=== PATIENT | female | born 1975 | race Caucasian/White ===

== ENCOUNTER 2016-09-13 21:39 | Emergency (ER) ==
[2016-09-13 21:58] VITALS: BP 134/83; TEMP 98.8; BMI 31.6
--- NOTE | 2016-09-13 22:18 | ED.PDOC ---
General ED Provider: Dr. RYAN VARGAS-ER Chief Complaint: Tooth Problem Stated Complaint: iv got a bad tooth Time Seen by Physician: 22:15 Mode of Arrival: Walk-In Information Source: Patient Exam Limitations: No limitations Primary Care Provider: TIO PETERSON Nursing and Triage Documentation Reviewed and Agree: Yes EENT Complaint Exam - Dental/Oral Complaint/Exam Mechanism of Injury: No known trauma Onset/Duration: several hours Symptoms Are: Still present Timing: Constant Initial Severity: Mild Current Severity: Mild Location: several days Character: Reports: Dull, Aching, Throbbing Aggravating: Reports: None Alleviating: Reports: None Associated Signs and Symptoms: Reports: Swelling. Denies: Discharge, Fever, Foul taste in mouth Related History: Reports: Similar episode Cardiac Risk Factors: Reports: None Dental/Oral Surgical History: Reports: None Tooth Findings: Present: Percussion tenderness, Gross decay, Gross caries Cervical Lymphadenopathy Present: No Facial Swelling Present: Yes Bleeding Present: No Oropharynx Findings: Absent: Clots, Active bleeding Septal Hematoma: No Foreign Body Present: No Dysphagia Present: No Drooling Present: No Asymmetrical Tonsillar Swelling Present: No Uvula Midline: No Giulia-tonsillar Fluctuence: No Trismus Present: No Palatal Petechiae Present: No Scarlatinaform Rash Present: No Differential Diagnoses: Dental Abcess, Dental Caries, Gingivitis Review of Systems - Review Of Systems Constitutional: Reports: No symptoms Eyes: Reports: No symptoms Ears, Nose, Mouth, Throat: Reports: Mouth pain Respiratory: Reports: No symptoms Cardiac: Reports: No symptoms GI: Reports: No symptoms : Reports: No symptoms Musculoskeletal: Reports: No symptoms Skin: Reports: No symptoms Neurological: Reports: No symptoms Endocrine: Reports: No symptoms Hematologic/Lymphatic: Reports: No symptoms All Other Systems: Reviewed and Negative Past Medical History - Past Medical History Previously Healthy: Yes Endocrine: Reports: None Cardiovascular: Reports: Hypertension Respiratory: Reports: None Hematological: Reports: None Gastrointestinal: Reports: None Genitourinary: Reports: None Neuro/Psych: Reports: None Musculoskeletal: Reports: None Cancer: Reports: None Last Menstrual Period: 09/07/16 Other Pertinent Past Medical History: Sinus problem - Surgical History General Surgical History: Reports: None - Family History Family History: Reports: Unknown - Social History Smoking Status: Current every day smoker Hx Substance Use: No Alcohol Screening: None Lives: With family - Immunizations Tetanus Shot up to Date: Yes Physical Exam - Physical Exam Appearance: Well-appearing, No pain distress, Well-nourished Eyes: RAJ, EOMI, Conjunctiva clear ENT: Ears normal, Nose normal, Oropharynx normal (noted tenderness over rigth lower incisor) Neck: Supple Respiratory: Airway patent, Breath sounds clear, Breath sounds equal, Respirations nonlabored Cardiovascular: RRR, Pulses normal, No rub, No murmur GI/: Soft, Nontender, No masses, Bowel sounds normal, No Organomegaly Musculoskeletal: Normal strength, ROM intact, No edema, No calf tenderness Skin: Warm, Dry, Normal color Neurological: Sensation intact, Motor intact, Reflexes intact, Cranial nerves intact, Alert, Oriented Psychiatric: Affect appropriate, Mood appropriate Critical Care Note - Critical Care Note Total Time (mins): 0 Course - Course Vital Signs: Temp Pulse Resp BP Pulse Ox 09/13/16 21:43 98.8 F 71 20 134/83 97 Departure - Departure Time of Disposition: 22:18 Disposition: HOME SELF-CARE Discharge Problem: Dental abscess Instructions: Dental Abscess (ED) Condition: Good Pt referred to PMD for follow-up: Yes Additional Instructions: augmentin 875mg bid x 7days--norco 7.5mg q 4hrs prn pain #8--f/u with dentist kinga Allergies/Adverse Reactions: Allergies tramadol Adverse Reaction (Verified 09/13/16 22:00) Hives Home Medications: Ambulatory Orders Aspirin [Aspirin Chewable] 81 mg PO QAM 03/31/13 Ibuprofen 800 mg PO TID #30 tablet 02/16/15 Irbesartan [Avapro] 300 mg PO DAILY 02/16/15 Hydrochlorothiazide 12.5 mg PO DIRECTED PRN 11/15/15 Lansoprazole [Prevacid] 30 mg PO DAILY 11/15/15 Calcium Carbonate/Vitamin D3 [Calcium 500 + Vit D 400 Tablet] 1 tab PO BID 03/14
== END 2016-09-13 22:27 | disposition home or self-care (01) ==
LOC: ED 21:39
DX: K04.7 Periapical abscess without sinus (principal); K02.7 Dental root caries; F17.210 Nicotine dependence, cigarettes, uncomplicated
CPT/HCPCS: 99282

== ENCOUNTER 2017-03-16 15:34 | Emergency (ER) ==
[2017-03-16 15:40] VITALS: BP 126/88; TEMP 97.1; BMI 30.7
[2017-03-16] MEDS ORDERED: NORCO 10-325 PO STA (15:52)
--- NOTE | 2017-03-16 15:58 | ED.PDOC ---
General ED Provider: Dr. JR SHEPHERD Chief Complaint: Tooth Problem Stated Complaint: dental pain Time Seen by Physician: 15:45 Mode of Arrival: Walk-In Information Source: Patient Exam Limitations: No limitations Primary Care Provider: TIO PETERSON Nursing and Triage Documentation Reviewed and Agree: Yes EENT Complaint Exam - Dental/Oral Complaint/Exam Mechanism of Injury: No known trauma Symptoms Are: Still present Timing: Constant Initial Severity: Mild Current Severity: Mild Character: Reports: Dull Aggravating: Reports: None Alleviating: Reports: None Associated Signs and Symptoms: Denies: Swelling, Discharge, Fever, Foul odor, Foul taste in mouth Related History: Reports: Similar episode Cardiac Risk Factors: Reports: None Dental/Oral Surgical History: Reports: None Facial Swelling Present: No Bleeding Present: No Septal Hematoma: No Foreign Body Present: No Dysphagia Present: No Drooling Present: No Asymmetrical Tonsillar Swelling Present: No Uvula Midline: Yes Giulia-tonsillar Fluctuence: No Trismus Present: No Palatal Petechiae Present: No Scarlatinaform Rash Present: No Teeth Picture: 1 - decay Differential Diagnoses: Dental Caries Review of Systems - Review Of Systems Constitutional: Reports: No symptoms Eyes: Reports: No symptoms Ears, Nose, Mouth, Throat: Reports: Throat pain Respiratory: Reports: No symptoms Cardiac: Reports: No symptoms GI: Reports: No symptoms : Reports: No symptoms Musculoskeletal: Reports: No symptoms Skin: Reports: No symptoms Neurological: Reports: No symptoms Endocrine: Reports: No symptoms Hematologic/Lymphatic: Reports: No symptoms All Other Systems: Reviewed and Negative Past Medical History - Past Medical History Previously Healthy: Yes Endocrine: Reports: None Cardiovascular: Reports: Hypertension Respiratory: Reports: None Hematological: Reports: None Gastrointestinal: Reports: None Genitourinary: Reports: None Neuro/Psych: Reports: None Musculoskeletal: Reports: None Cancer: Reports: None Last Menstrual Period: last week Other Pertinent Past Medical History: Sinus problem - Surgical History General Surgical History: Reports: None - Family History Family History: Reports: Unknown - Social History Smoking Status: Current every day smoker Hx Substance Use: No Alcohol Screening: None Physical Exam - Physical Exam Appearance: Well-appearing, No pain distress, Well-nourished Eyes: RAJ, EOMI, Conjunctiva clear ENT: Ears normal, Nose normal, Oropharynx normal Respiratory: Airway patent, Breath sounds clear, Breath sounds equal, Respirations nonlabored Cardiovascular: RRR, Pulses normal, No rub, No murmur GI/: Soft, Nontender, No masses, Bowel sounds normal, No Organomegaly Musculoskeletal: Normal strength, ROM intact, No edema, No calf tenderness Skin: Warm, Dry, Normal color Neurological: Sensation intact, Motor intact, Reflexes intact, Cranial nerves intact, Alert, Oriented Psychiatric: Affect appropriate, Mood appropriate Critical Care Note - Critical Care Note Total Time (mins): 0 Course - Course Orders, Labs, Meds: Orders Category Date Time Status Hydrocodone Bit/Acetaminophen [[place] 10-325] MEDS 03/16/17 15:52 Stat 1 tab PO ONCE STA Medications Discontinued Medications Generic Name Dose Route Start Last Admin Trade Name Freq PRN Reason Stop Dose Admin Acetaminophen/Hydrocodone Bitart 1 tab 03/16/17 15:52 [place] 10-325 PO 03/16/17 15:53 ONCE STA Vital Signs: Temp Pulse Resp BP Pulse Ox 03/16/17 15:36 97.1 F L 94 H 16 126/88 98 Departure - Departure Time of Disposition: 15:58 Disposition: HOME SELF-CARE Discharge Problem: Toothache Instructions: Dental Caries (GEN), Toothache (ED) Condition: Good Pt referred to PMD for follow-up: Yes Additional Instructions: Please call your Family Physician as soon as possible to schedule a follow-up appointment. Prescriptions: Amoxicillin 500 mg PO Q8HR #21 tablet Allergies/Adverse Reactions: Allergies tramadol Adverse Reaction (Verified 03/16/17 15:40) Hives Home Medications: Ambulatory Orders Aspirin [Aspirin Chewable] 81 mg PO QAM 03/31/13 Ibuprofen 800 mg PO TID #30 tablet 02/16/15 Irbesartan [Avapro] 300 mg PO DAILY 02/16/15 Hydrochlorothiazide 12.5 mg PO DIRECTED PRN 11/15/15 Lansoprazole [Prevacid] 30 mg PO DAILY 11/15/15 Calcium Carbonate/Vitamin D3 [Calcium 500 + Vit D 400 Tablet] 1 tab PO BID 03/14 Albuterol Sulfate [Proair Hfa] 2 puff IH Q6H 03/16/17 Amoxicillin 500 mg PO Q8HR #21 tablet 03/16/17 Gabapentin 500 mg PO BEDTIME 03/16/17 Gabapentin [Neurontin] 400 mg PO DAILY 03/16/17
== END 2017-03-16 16:10 | disposition home or self-care (01) ==
LOC: ED 15:34
DX: K08.89 Other specified disorders of teeth and supporting structures (principal); K02.7 Dental root caries; F17.210 Nicotine dependence, cigarettes, uncomplicated
CPT/HCPCS: 99282

== ENCOUNTER 2017-11-02 20:26 | Emergency (ER) ==
[2017-11-02 20:33] VITALS: BP 138/88; TEMP 97.1; BMI 29.2
== END 2017-11-02 20:56 | disposition left against medical advice (07) ==
LOC: ED 20:26
DX: K08.89 Other specified disorders of teeth and supporting structures (principal); F17.210 Nicotine dependence, cigarettes, uncomplicated

== ENCOUNTER 2018-01-29 16:30 | Emergency (ER) ==
[2018-01-29 16:36] VITALS: BP 154/92; TEMP 98.3; BMI 30.4
--- NOTE | 2018-01-29 16:50 | ED.PDOC ---
General ED Provider: Dr. KIMBERLY PISANO Chief Complaint: Tooth Problem Stated Complaint: Patient is a 42 year old female who comes to the ER with complains of left lower molar pain for weeks. Time Seen by Physician: 16:49 Mode of Arrival: Walk-In Information Source: Patient Primary Care Provider: TIO PETERSON Nursing and Triage Documentation Reviewed and Agree: Yes Does patient meet sepsis criteria?: No If yes, has appropriate treatment been initiated?: No System Inflammatory Response Syndrome: Not Applicable Sepsis Protocol: For patient's 13 years and over: Temp is 96.8 and below OR 101 and greater Pulse >90 BPM Resp >20/minute Acutely Altered Mental Status Are patient's symptoms suggestive of a new infection, such as: -Pneumonia -Skin, Soft Tissue -Endocarditis -UTI -Bone, Joint Infection -Implantable Device -Acute Abdominal Infection -Wound Infection -Meningitis -Blood Stream Catheter Infection -Unknown EENT Complaint Exam - Dental/Oral Complaint/Exam Mechanism of Injury: No known trauma Onset/Duration: 45 days Symptoms Are: Still present Timing: Constant Initial Severity: Moderate Current Severity: Severe Location: Left upper molars Character: Reports: Aching, Throbbing Aggravating: Reports: Heat, Cold, Chewing Alleviating: Reports: None Associated Signs and Symptoms: Reports: Discharge, Foul odor, Foul taste in mouth Related History: Reports: Similar episode Cardiac Risk Factors: Reports: None Tooth Findings: Present: Percussion tenderness, Gross decay, Gross caries, Abcess Facial Swelling Present: Yes (mild ) Bleeding Present: No Oropharynx Findings: Absent: Clots, Active bleeding Septal Hematoma: No Foreign Body Present: No Dysphagia Present: No Drooling Present: No Asymmetrical Tonsillar Swelling Present: No Uvula Midline: No Giulia-tonsillar Fluctuence: No Trismus Present: No Scarlatinaform Rash Present: No Teeth Picture: 1 - dental abscess. Gross decaly to the pulp. Tendeness to palpation. Differential Diagnoses: Dental Abcess, Dental Caries Review of Systems - Review Of Systems Constitutional: Reports: No symptoms Eyes: Reports: No symptoms Ears, Nose, Mouth, Throat: Reports: Mouth pain, Loose teeth Respiratory: Reports: No symptoms Cardiac: Reports: No symptoms GI: Reports: No symptoms : Reports: No symptoms Musculoskeletal: Reports: No symptoms Skin: Reports: No symptoms Neurological: Reports: No symptoms Endocrine: Reports: No symptoms Hematologic/Lymphatic: Reports: No symptoms All Other Systems: Reviewed and Negative Past Medical History - Past Medical History Previously Healthy: Yes Endocrine: Reports: None Cardiovascular: Reports: Hypertension Respiratory: Reports: None Hematological: Reports: None Gastrointestinal: Reports: None Genitourinary: Reports: None Neuro/Psych: Reports: None Musculoskeletal: Reports: None Cancer: Reports: None Last Menstrual Period: 1 1/2 weeks Other Pertinent Past Medical History: Sinus problem - Surgical History General Surgical History: Reports: None - Family History Family History: Reports: Unknown - Social History Smoking Status: Current every day smoker Hx Substance Use: No Alcohol Screening: None Physical Exam - Physical Exam Appearance: Ill-appearing Ill-appearing: Moderate Pain Distress: Severe Eyes: RAJ, EOMI, Conjunctiva clear ENT: Ears normal, Nose normal, Oropharynx normal Neck: Supple Cardiovascular: RRR, Pulses normal, No rub, No murmur Skin: Warm, Dry, Normal color Neurological: Alert, Oriented Psychiatric: Anxious Critical Care Note - Critical Care Note Total Time (mins): 0 Course - Course Vital Signs: Temp Pulse Resp BP Pulse Ox 01/29/18 16:30 98.3 F 83 20 154/92 H 95 Departure - Departure Time of Disposition: 17:20 Disposition: HOME SELF-CARE Discharge Problem: Toothache, Dental abscess Instructions: Dental Abscess (ED) Condition: Fair Pt referred to PMD for follow-up: Yes IPMP verified?: No Additional Instructions: Keep your dental appointment as scheduled. Prescriptions: Hydrocodone Bit/Acetaminophen [[place] 5-325] 1 each PO Q6HR PRN #15 tablet PRN Reason: severe pain Clindamycin HCl 300 mg PO TID #30 capsule Ibuprofen [Motrin] 600 mg PO Q6H PRN #30 tablet PRN Reason: Analgesia Allergies/Adverse Reactions: Allergies amoxicillin Adverse Reaction (Mild, Verified 01/29/18 16:36) YEAST INFECTIONS WHEN TAKING tramadol Adverse Reaction (Verified 01/29/18 16:36) Hives Home Medications: Ambulatory Orders Aspirin [Aspirin Chewable] 81 mg PO QAM 03/31/13 Ibuprofen 800 mg PO TID #30 tablet 02/16/15 Irbesartan [Avapro] 300 mg PO DAILY 02/16/15 Hydrochlorothiazide 12.5 mg PO DIRECTED PRN 11/15/15 Lansoprazole [Prevacid] 30 mg PO DAILY 11/15/15 Calcium Carbonate/Vitamin D3 [Calcium 500 + Vit D 400 Tablet] 1 tab PO BID 03/14 Albuterol Sulfate [Proair Hfa] 2 puff IH Q6H 03/16/17 Gabapentin 500 mg PO BEDTIME 03/16/17 Clindamycin HCl 300 mg PO TID #30 capsule 01/29/18 Hydrocodone Bit/Acetaminophen [[place] 5-325] 1 each PO Q6HR PRN #15 tablet Ibuprofen [Motrin] 600 mg PO Q6H PRN #30 tablet 01/29/18
== END 2018-01-29 17:26 | disposition home or self-care (01) ==
LOC: ED 16:30
DX: K04.7 Periapical abscess without sinus (principal); K08.89 Other specified disorders of teeth and supporting structures; K02.7 Dental root caries; F17.210 Nicotine dependence, cigarettes, uncomplicated
CPT/HCPCS: 99282

== ENCOUNTER 2018-02-20 18:58 | Emergency (ER) ==
[2018-02-20 19:05] VITALS: BP 150/88; TEMP 98.5; BMI 30.5
--- NOTE | 2018-02-20 19:32 | ED.PDOC ---
General ED Provider: Dr. KIMBERLY PISANO Chief Complaint: Tooth Problem Stated Complaint: Patient states she has right lower dental pain, She was seen last month in this ER and given Clindamycin and Hydrocodone and Motrin. She states that she has run out of her antibiotics. She felt better with the left lower dental pain but now the right hurts. She is still taking Ibuprofen. Time Seen by Physician: 19:20 Mode of Arrival: Walk-In Information Source: Patient Primary Care Provider: TIO PETERSON Nursing and Triage Documentation Reviewed and Agree: Yes Does patient meet sepsis criteria?: No System Inflammatory Response Syndrome: Not Applicable Sepsis Protocol: For patient's 13 years and over: Temp is 96.8 and below OR 101 and greater Pulse >90 BPM Resp >20/minute Acutely Altered Mental Status Are patient's symptoms suggestive of a new infection, such as: -Pneumonia -Skin, Soft Tissue -Endocarditis -UTI -Bone, Joint Infection -Implantable Device -Acute Abdominal Infection -Wound Infection -Meningitis -Blood Stream Catheter Infection -Unknown Review of Systems - Review Of Systems Constitutional: Reports: No symptoms Eyes: Reports: No symptoms Ears, Nose, Mouth, Throat: Reports: Mouth pain, Mouth swelling, Loose teeth Respiratory: Reports: No symptoms Cardiac: Reports: No symptoms GI: Reports: No symptoms : Reports: No symptoms Musculoskeletal: Reports: No symptoms Skin: Reports: No symptoms Neurological: Reports: No symptoms Endocrine: Reports: No symptoms Hematologic/Lymphatic: Reports: No symptoms All Other Systems: Reviewed and Negative Past Medical History - Past Medical History Previously Healthy: Yes Endocrine: Reports: None Cardiovascular: Reports: Hypertension Respiratory: Reports: None Hematological: Reports: None Gastrointestinal: Reports: None Genitourinary: Reports: None Neuro/Psych: Reports: None Musculoskeletal: Reports: None Cancer: Reports: None Last Menstrual Period: 2 days Other Pertinent Past Medical History: Sinus problem - Surgical History General Surgical History: Reports: None - Family History Family History: Reports: Unknown - Social History Smoking Status: Current every day smoker, Heavy tobacco smoker Hx Substance Use: No Alcohol Screening: None - Immunizations Tetanus Shot up to Date: Yes Physical Exam - Physical Exam Appearance: Obese Pain Distress: Severe Eyes: RAJ, EOMI, Conjunctiva clear ENT: Ears normal, Nose normal, Oropharynx normal Neck: Supple Respiratory: Airway patent, Breath sounds clear, Breath sounds equal, Respirations nonlabored Cardiovascular: RRR, Pulses normal, No rub, No murmur Skin: Warm, Dry Neurological: Alert, Oriented Psychiatric: Anxious Critical Care Note - Critical Care Note Total Time (mins): 0 Course - Course Vital Signs: Temp Pulse Resp BP Pulse Ox 02/20/18 19:00 98.5 F 83 18 150/88 H 95 Departure - Departure Time of Disposition: 19:38 Disposition: HOME SELF-CARE Discharge Problem: Toothache Instructions: Dental Abscess (ED), Toothache (ED) Condition: Good Pt referred to PMD for follow-up: Yes IPMP verified?: No Additional Instructions: Follow up with your dentist next week. Take Medication as prescribed. Prescriptions: Acetaminophen with Codeine [Tylenol #3 Tab] 1 tab PO Q6H PRN #25 tablet PRN Reason: Severe Pain Clindamycin HCl 300 mg PO TID #30 capsule Allergies/Adverse Reactions: Allergies amoxicillin Adverse Reaction (Mild, Verified 01/29/18 16:36) YEAST INFECTIONS WHEN TAKING tramadol Adverse Reaction (Verified 01/29/18 16:36) Hives Home Medications: Ambulatory Orders Aspirin [Aspirin Chewable] 81 mg PO QAM 03/31/13 Ibuprofen 800 mg PO TID #30 tablet 02/16/15 Irbesartan [Avapro] 300 mg PO DAILY 02/16/15 Hydrochlorothiazide 12.5 mg PO DIRECTED PRN 11/15/15 Lansoprazole [Prevacid] 30 mg PO DAILY 11/15/15 Calcium Carbonate/Vitamin D3 [Calcium 500 + Vit D 400 Tablet] 1 tab PO BID 03/14 Albuterol Sulfate [Proair Hfa] 2 puff IH Q6H 03/16/17 Gabapentin 500 mg PO BEDTIME 03/16/17 Clindamycin HCl 300 mg PO TID #30 capsule 01/29/18 Hydrocodone Bit/Acetaminophen [[place] 5-325] 1 each PO Q6HR PRN #15 tablet Ibuprofen [Motrin] 600 mg PO Q6H PRN #30 tablet 01/29/18 Acetaminophen with Codeine [Tylenol #3 Tab] 1 tab PO Q6H PRN #25 tablet Clindamycin HCl 300 mg PO TID #30 capsule 02/20/18 Disposition Discussed With: Patient, Family
[2018-02-20] MEDS ORDERED: TYLENOL PO STA (19:39)
[2018-02-20] MEDS ORDERED: CLEOCIN PO STA (19:39)
== END 2018-02-20 20:00 | disposition home or self-care (01) ==
LOC: ED 18:58
DX: K08.89 Other specified disorders of teeth and supporting structures (principal); F17.210 Nicotine dependence, cigarettes, uncomplicated
CPT/HCPCS: 99282

== ENCOUNTER 2018-07-13 10:36 | Emergency (ER) ==
[2018-07-13 10:42] VITALS: BP 132/85; TEMP 98.4; BMI 29.4
[2018-07-13] MEDS ORDERED: TORADOL IM STA (10:52)
[2018-07-13] MEDS ORDERED: NORCO 10-325 PO STA (10:53)
--- NOTE | 2018-07-13 11:17 | ED.PDOC ---
General ED Provider: Dr. JR SHEPHERD Chief Complaint: Vaginal Bleeding Stated Complaint: the pt is on her menstural cycle. she reports of typical lower abdominal cramping pain during her irregular cycles. no abdomina/ pelvic trauma reported. Time Seen by Physician: 10:40 (AMANDA PRESENT AT ALL TIMES ) Information Source: Patient Exam Limitations: No limitations Primary Care Provider: TIO PETERSON Nursing and Triage Documentation Reviewed and Agree: Yes Does patient meet sepsis criteria?: No System Inflammatory Response Syndrome: Not Applicable Sepsis Protocol: For patient's 13 years and over: Temp is 96.8 and below OR 101 and greater Pulse >90 BPM Resp >20/minute Acutely Altered Mental Status Are patient's symptoms suggestive of a new infection, such as: -Pneumonia -Skin, Soft Tissue -Endocarditis -UTI -Bone, Joint Infection -Implantable Device -Acute Abdominal Infection -Wound Infection -Meningitis -Blood Stream Catheter Infection -Unknown Review of Systems - Review Of Systems Constitutional: Reports: No symptoms Eyes: Reports: No symptoms Ears, Nose, Mouth, Throat: Reports: No symptoms Respiratory: Reports: No symptoms Cardiac: Reports: No symptoms GI: Reports: Abdominal pain : Reports: Other (VAGINAL BLEEDING FROM HER MENSTURAL CYCLE) Musculoskeletal: Reports: No symptoms Skin: Reports: No symptoms Neurological: Reports: No symptoms Endocrine: Reports: No symptoms Hematologic/Lymphatic: Reports: No symptoms All Other Systems: Reviewed and Negative Past Medical History - Past Medical History Previously Healthy: Yes Endocrine: Reports: None Cardiovascular: Reports: Hypertension Respiratory: Reports: None Hematological: Reports: None Gastrointestinal: Reports: None Genitourinary: Reports: None Neuro/Psych: Reports: None Musculoskeletal: Reports: None Cancer: Reports: None Last Menstrual Period: now Other Pertinent Past Medical History: Sinus problem - Surgical History General Surgical History: Reports: None - Family History Family History: Reports: Unknown - Social History Smoking Status: Current every day smoker, Heavy tobacco smoker Hx Substance Use: No Alcohol Screening: None Physical Exam - Physical Exam Appearance: Well-appearing Eyes: RAJ, EOMI, Conjunctiva clear ENT: Ears normal, Nose normal, Oropharynx normal Respiratory: Airway patent, Breath sounds clear, Breath sounds equal, Respirations nonlabored Cardiovascular: RRR, Pulses normal, No rub, No murmur GI/: Soft, Nontender, No masses, Bowel sounds normal, No Organomegaly Musculoskeletal: Normal strength, ROM intact, No edema, No calf tenderness Skin: Warm, Dry, Normal color Neurological: Sensation intact, Motor intact, Reflexes intact, Cranial nerves intact, Alert, Oriented Psychiatric: Affect appropriate, Mood appropriate Critical Care Note - Critical Care Note Total Time (mins): 0 Course - Course Orders, Labs, Meds: Orders Category Date Time Status Hydrocodone Bit/Acetaminophen [[place] 10-325] MEDS 07/13/18 10:53 Discontinued 1 tab PO ONCE STA Ketorolac Tromethamine [Toradol] MEDS 07/13/18 10:52 Discontinued 15 mg IM ONCE STA CT ABDOMEN/PELVIS WO CONTRAST Stat RADS 07/13/18 11:07 Ordered U/S PELVIS CARRANZA VAGINAL/NON OB Stat RADS 07/13/18 11:08 Ordered Medications Discontinued Medications Generic Name Dose Route Start Last Admin Trade Name Freq PRN Reason Stop Dose Admin Hydrocodone Bitart/Acetaminophen 1 tab 07/13/18 10:53 [place] 10-325 PO 07/13/18 10:54 ONCE STA Ketorolac Tromethamine 15 mg 07/13/18 10:52 Toradol IM 07/13/18 10:53 ONCE STA Vital Signs: Temp Pulse Resp BP Pulse Ox 07/13/18 10:38 98.4 F 81 20 132/85 98 Departure - Departure Time of Disposition: 11:18 (AMANDA PRESENT ALL TIMES. PT STATED THIS TYPE OF PAIN IS NOTED IN THE PAST DURING HERMENSTURAL CYCLES. 10 MG OF NORCO P.O. AND 15 MG OF IM TORADOL WAS PERSCRIBED. PT DECLINED BOTH MEDS STATED NORCO GIVES HER DIARRHEA . PT THEN ASKED FOR PERCOCET WHICH WAS DECLINED BY MYSELF. FULL WORKUP DID GET ORDERED THE PT LATER DECLINED ALL CARE STATED I GO WHERE I AM BELIEVED AND LEFT) Disposition: AMA Discharge Problem: Abdominal pain Qualifiers: Abdominal location: lower abdomen, unspecified Qualified Code(s): R10.30 - Lower abdominal pain, unspecified Instructions: Abdominal Pain (ED) Condition: Good Pt referred to PMD for follow-up: Yes IPMP verified?: No Additional Instructions: Please call your Family Physician as soon as possible to schedule a follow-up appointment. Allergies/Adverse Reactions: Allergies amoxicillin Adverse Reaction (Mild, Verified 07/13/18 10:44) YEAST INFECTIONS WHEN TAKING hydrocodone [From [place]] Adverse Reaction (Verified 07/13/18 10:44) tramadol Adverse Reaction (Verified 07/13/18 10:44) Hives Home Medications: Ambulatory Orders Aspirin [Aspirin Chewable] 81 mg PO QAM 03/31/13 Irbesartan [Avapro] 300 mg PO DAILY 02/16/15 Lansoprazole [Prevacid] 30 mg PO DAILY 11/15/15 Calcium Carbonate/Vitamin D3 [Calcium 500 + Vit D 400 Tablet] 1 tab PO BID 03/14 Albuterol Sulfate [Proair Hfa] 2 puff IH Q6H 03/16/17 Gabapentin 500 mg PO BEDTIME 03/16/17 Ibuprofen [Motrin] 600 mg PO Q6H PRN #30 tablet 01/29/18 Acetaminophen with Codeine [Tylenol #3 Tab] 1 tab PO Q6H PRN #25 tablet Disposition Discussed With: Patient
== END 2018-07-13 11:10 | disposition left against medical advice (07) ==
LOC: ED 10:36
DX: R10.30 Lower abdominal pain, unspecified (principal); F17.210 Nicotine dependence, cigarettes, uncomplicated
CPT/HCPCS: 99284